=== PATIENT | male | born 1945 | race African-American/Black ===

== ENCOUNTER 2020-04-04 11:11 | Inpatient (IN) | payer MEDICARE, MEDICAID ==
[~2020-04-04] VITALS: Ht 175.3 cm; Wt 85.3 kg
[2020-04-04] MEDS ORDERED: BISACODYL5 MG ORAL (11:26)
[2020-04-04] MEDS ORDERED: FAMOTIDINE20 MG ORAL (11:26)
[2020-04-04] MEDS ORDERED: BUSPIRONE HCL15 MG ORAL (11:26)
[2020-04-04] MEDS ORDERED: ASPIR 8181 MG ORAL (11:26)
[2020-04-04] MEDS ORDERED: LISINOPRIL20 MG ORAL (11:26)
[2020-04-04] MEDS ORDERED: MULTIVITAMINS1 EAC8 ORAL (11:26)
[2020-04-04] MEDS ORDERED: GUAIFENESIN PO (11:26)
[2020-04-04] MEDS ORDERED: COREG3.125 MG ORAL (11:26)
[2020-04-04] MEDS ORDERED: DIGOXIN125 MCG ORAL (11:26)
[2020-04-04] MEDS ORDERED: REMERON15 MG ORAL (11:26)
[2020-04-04] MEDS ORDERED: GUAIFENESIN DM118 M1 ORAL (11:26)
[2020-04-04] MEDS ORDERED: SPIRONOLACTONE25 MG ORAL (11:26)
[2020-04-04 11:27] VITALS: BP 122/70
[2020-04-04] MEDS ORDERED: VITAMIN C500 M1 ORAL (11:27)
[2020-04-04] MEDS ORDERED: SENNA8.6 M2 PO (11:27)
[2020-04-04] MEDS ORDERED: ACETAMINOPHEN325 M1 ORAL (11:27)
[2020-04-04] MEDS ORDERED: FLOMAX0.4 MG ORAL (11:27)
[2020-04-04] MEDS ORDERED: ZINC SULFATE220 M1 ORAL (11:27)
--- NOTE | 2020-04-04 11:36 | NUR ---
ED Nurse Note: Patient arrived with [facility] unit [facility] due to increase in ALOC from snf. Per facility's staff patient confused and delusional. Patient presented AAO x4, VSS at this time, talking in full sentances, has even non-labored breathing. ER MD at bed side
--- NOTE | 2020-04-04 11:41 | Emergency Room Report ---
History of Present Illness General Chief Complaint: Altered Level of Consciousness Source: Patient Present Illness HPI Patient is a 75-year-old male brought in by EMS for altered mental status. Patient reportedly had been having increased delusional behavior. 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 States that he had previous AICD placement patient is a resident of [facility] patient had been more somnolent at his facility and had have been difficulty arousable. Patient had not been vomiting had prior history of disconjugate gaze and lazy eye. 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 COVID-19 Screening: Negative COVID-19 COVID-19 Testing Source: unk Patient History Past Medical History: see triage record Reviewed Nursing Documentation: PMH: Agreed; PSxH: Agreed Nursing Documentation-PMH Past Medical History: No History, Except For Hx COPD: Yes Review of Systems All Other Systems: negative except mentioned in HPI Physical Exam Vital Signs Date Time Temp Pulse Resp B/P (MAP) Pulse Ox O2 Delivery O2 Flow Rate FiO2 04/04/20 11:12 98.6 72 15 122/70 (87) 92 Room Air Sp02 EP Interpretation: reviewed, normal General Appearance: normal inspection, well appearing, no apparent distress, alert Head: atraumatic Eyes: bilateral eye other ENT: normal ENT inspection, hearing grossly normal, normal voice Neck: normal inspection, full range of motion, supple, no bony tend Respiratory: normal inspection, lungs clear, normal breath sounds, no respiratory distress, no retraction, no wheezing Cardiovascular #1: regular rate, rhythm, no edema Gastrointestinal: normal inspection, normal bowel sounds, non tender, soft, no guarding, no hernia Musculoskeletal: normal inspection, back normal, normal range of motion Neurologic: alert, motor weakness - Left-sided weakness, responsive, speech normal, normal inspection, other - Disconjugate gaze with rest Psychiatric: normal inspection, judgement/insight normal, mood/affect normal Medical Decision Making Diagnostic Impression: Primary Impression: Encephalopathy Additional Impression: CVA, old, hemiparesis ER Course Patient presented for altered level consciousness. Differential diagnosis include was not limited to pneumonia, bowel obstruction, urinary tract infection , electrolyte abnormality, CVA among others. Because of complexity of patient' s case laboratory tests and imaging studies were ordered. Laboratory testing showed no acute abnormalities. No evidence of urinary infection. CT of the head read by radiology showed large old CVA. See radiology report for full details. Patient was noted to have what appears to be adequate mental status. It is unclear as to what caused the patient's initial alteration in mental status at the facility. Patient be placed in observation. Dr. Sofie Garcia was contacted for inpatient management EKG Diagnostic Results Rate: normal Rhythm: NSR ST Segments: no acute changes Last Vital Signs Date Time Temp Pulse Resp B/P (MAP) Pulse Ox O2 Delivery O2 Flow Rate FiO2 04/04/20 11:12 98.6 72 15 122/70 (87) 92 Room Air Status: improved Disposition: PLACE IN OBSERVATION Condition: Stable Yohan Tiwari MD Apr 04, 2020 11:41
--- NOTE | 2020-04-04 11:50 | NUR ---
ED Nurse Note: IV established on right AC 20ga, blood collected sent down
--- NOTE | 2020-04-04 11:58 | NUR ---
ED Nurse Note: patient was taken to CT
--- NOTE | 2020-04-04 12:09 | NUR ---
ED Nurse Note: Pt returned from CT, not in any distress.
[2020-04-04 12:11] LABS: BASOPHILS % (AUTO) 0.6 % (0.0-2.0); EOSINOPHILS % (AUTO) 1.9 % (0.0-3.0); HEMATOCRIT 47.5 % (37.0-47.0); MEAN CORPUSCULAR VOLUME 93 FL (80-99); MONOCYTES % (AUTO) 7.7 % (1.0-10.0); NEUTROPHILS % (AUTO) 67.9 % (45.0-75.0); PLATELET COUNT 174 K/UL (150-450); RED BLOOD COUNT 5.13 M/UL (4.20-5.40); WHITE BLOOD COUNT 7.3 K/UL (4.8-10.8)
--- NOTE | 2020-04-04 12:16 | Diagnostic Imaging Report ---
. Indication: Reason For Exam: AMS Technique: Continuous helical CT scanning of the head was performed without intravenous contrast material. Axial and coronal 5 mm sections were generated. Dose: Total Dose Length Product - DLP [address] Dose Index - CTDIvol(s) 53.40 mGy. Automated exposure control was utilized for dose reduction. Comparison: None Findings: The ventricles are prominent with prominence of cortical sulci. There is a large area of encephalomalacia involving the right frontal and temporal lobe in the distribution of the right middle cerebral artery. Periventricular low-density is present. There is no shift of midline structures. No abnormal extra-axial fluid collections are noted. There is no evidence of intracerebral bleeding. No other abnormal high or low density areas are noted within the brain. Impression: Atrophy. Chronic small vessel white matter ischemic change. 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 No acute abnormality. The CT scanner at [facility] is accredited by the [employer] and the scans are performed using protocols designed to limit radiation exposure to as low as reasonably achievable to attain images of sufficient resolution adequate for diagnostic evaluation.
--- NOTE | 2020-04-04 12:23 | NUR ---
ED Nurse Note: Urine sent to lab.
[2020-04-04 12:28] LABS: ANION GAP 5 mmol/L (5-15); BLOOD UREA NITROGEN 11 mg/dL (7-18); CALCIUM 8.6 MG/DL (8.5-10.1); CARBON DIOXIDE 31 MMOL/L (21-32); CHLORIDE 108 MMOL/L (98-107); CREATININE 0.8 MG/DL (0.55-1.30); POTASSIUM 3.9 MMOL/L (3.5-5.1); SODIUM 144 MMOL/L (136-145)
[2020-04-04 12:40] LABS: ALANINE AMINOTRANSFERASE 24 U/L (12-78); ALBUMIN 3.2 G/DL (3.4-5.0); ALBUMIN/GLOBULIN RATIO 0.8 (1.0-2.7); ALKALINE PHOSPHATASE 72 U/L (46-116); ASPARTATE AMINO TRANSFERASE 14 U/L (15-37); BILIRUBIN,TOTAL 0.4 MG/DL (0.2-1.0)
[2020-04-04 13:16] LABS: APPEARANCE,URINE CLEAR; BILIRUBIN, URINE NEGATIVE (NEGATIVE); COLOR,URINE PALE YELLOW; GLUCOSE, URINE (UA) NEGATIVE (NEGATIVE); KETONES,URINE NEGATIVE (NEGATIVE); LEUKOCYTE ESTERASE ,URINE 1+ (NEGATIVE); NITRITE,URINE NEGATIVE (NEGATIVE); PH,URINE 6 (4.5-8.0); PROTEIN,URINE NEGATIVE (NEGATIVE); UROBILINOGEN,URINE NORMAL MG/DL (0.0-1.0)
--- NOTE | 2020-04-04 15:18 | NUR ---
NURSE NOTES:RECEIVED REPORT FR. MARKETING SUPPORT SPECIALIST.(MELODIE).PRIMARY RN.(ADAM) INFORMED.
--- NOTE | 2020-04-04 15:30 | NUR ---
ED Nurse Note: Patient was transfered to [facility] unit due to ALOC. Patient was transfered via gurney with all belongigngs. Patient AAO x4, VSS at this time, skin is warm to touch, intact.
--- NOTE | 2020-04-04 15:44 | NUR ---
NURSE NOTES: Patient arrived on unit. Stable. Breathing is even and unlabored. Patient is able to verbalize needs. Denies pain or SOB. Patient oriented to room, call light, and unit. Patient instructed to use call light for assistance, verbalized understanding. Patient is in bed in locked and lowest position with call light within reach, room close to nurses station. All safety measures provided. Will continue to monitor.
--- NOTE | 2020-04-04 15:50 | NUR ---
NURSE NOTES: Paged Dr. Walden regarding admission orders. Awaiting response.
[2020-04-04 16:00] VITALS: BP 150/75
[2020-04-04] MEDS ORDERED: guaiFENesin 100mg/5ml Liq ud ORAL PRN (16:45)
[2020-04-04] MEDS ORDERED: BusPIRone 5mg Tab ORAL SCH (18:00)
--- NOTE | 2020-04-04 19:11 | NUR ---
NURSE HAND-OFF: Important Events on Shift:[admission] Patient Status: stable Diet: BRANDO reg Pending Orders: [n/a] Pending Results/Labs:am labs Pending MD notification:none Latest Vital Signs: Temperature 98.1 , Pulse 64 , B/P 150 /75 , Respiratory Rate 20 , O2 SAT 96 , Room Air, O2 Flow Rate . Vital Sign Comment: n/a Latest Corrigan Fall Score: 35 Fall Risk: Medium Risk Safety Measures: Call light Within Reach, Bed Alarm Zone 1, Side Rails Side Rails x2, Bed position Low and Locked. Fall Precautions: Yellow Socks Yellow Gown Door Sign Patient Fall Education Addendum: 04/04/20 at 1938 by ADAM GARCIA RN report given to Eden POTTER.
--- NOTE | 2020-04-04 19:15 | NUR ---
NURSE NOTES: Patient in bed, awake, able to make needs known. On room air with no signs of distress or SOB. IV intact and patent. Condom cath on. Bed locked and in lowest position. Bed alarm on. Call light in reach. Will continue to monitor the patient.
[2020-04-04 20:00] VITALS: BP 117/80
[2020-04-04] MEDS: Tamsulosin 0.4mg cap ORAL SCH (20:29)
[2020-04-04] MEDS: Sennosides 8.6mg tab ORAL SCH (20:38)
[2020-04-04 23:52] VITALS: BP 132/66
--- NOTE | 2020-04-05 | Consultation ---
DATE OF CONSULTATION: 04/04/2020 CONSULTING PHYSICIAN: Shawn Blanco MD. HISTORY OF PRESENT ILLNESS: This is a 75-year-old male with a history of stroke, vascular dementia as well as depression, psychotic disorder who was admitted due to altered mental status. During the evaluation, patient is . He is probably confused; however, is able to answer the questions and is providing history. PAST PSYCHIATRIC HISTORY: Significant for depression, anxiety. PAST MEDICAL HISTORY: Significant for stroke, agitation, COPD. ALLERGIES: No known drug allergies. SUBSTANCE ABUSE HISTORY: No known history of illicit drug use or alcohol. MENTAL STATUS EXAMINATION: Patient is alert. Mood is anxious. Affect is flat. Thought process is concrete. Thought content, no suicidal or homicidal ideation. Cognition is impaired. Insight and judgment is impaired. ASSESSMENT: 1. Vascular dementia. 2. Major depressive disorder. 3. Anxiety disorder. PLAN: 1. We will discontinue the BuSpar. 2. Continue the Remeron. 3. Provide the patient with reality orientation and supportive therapy. Shawn Blanco M.D. DR: PIEDAD JOB#: [id number] CC:
[2020-04-05 04:00] VITALS: BP 133/78
[2020-04-05 06:13] LABS: BASOPHILS % (AUTO) 0.6 % (0.0-2.0); EOSINOPHILS % (AUTO) 2.4 % (0.0-3.0); HEMATOCRIT 47.3 % (42.0-52.0); HEMOGLOBIN 14.9 G/DL (14.2-18.0); MEAN CORPUSCULAR VOLUME 94 FL (80-99); MONOCYTES % (AUTO) 4.7 % (1.0-10.0); NEUTROPHILS % (AUTO) 64.3 % (45.0-75.0); PLATELET COUNT 157 K/UL (150-450); RED BLOOD COUNT 5.05 M/UL (4.70-6.10); RED CELL DISTRIBUTION WIDTH 13.6 % (11.6-14.8); WHITE BLOOD COUNT 7.3 K/UL (4.8-10.8)
--- NOTE | 2020-04-05 06:19 | NUR ---
NURSE HAND-OFF: Important Events on Shift: None Patient Status: stable Diet: BRANDO - reg Pending Orders: N/A Pending Results/Labs:Pending AM labs Pending MD notification:N/A Latest Vital Signs: Temperature 98.2 , Pulse 80 , B/P 133 /78 , Respiratory Rate 18 , O2 SAT 93 , Room Air, O2 Flow Rate . Vital Sign Comment: Latest Corrigan Fall Score: 35 Fall Risk: Medium Risk Safety Measures: Call light Within Reach, Bed Alarm Zone 1, Side Rails Side Rails x2, Bed position Low and Locked. Fall Precautions: Jose Luis Henderson Patient Fall Education Addendum: 04/05/20 at 0708 by JACOB YEE RN Handoff report given to ABBEY Lizama
[2020-04-05 06:42] LABS: ALANINE AMINOTRANSFERASE 24 U/L (12-78); ALBUMIN/GLOBULIN RATIO 0.8 (1.0-2.7); ALKALINE PHOSPHATASE 72 U/L (46-116); ANION GAP 4 mmol/L (5-15); ASPARTATE AMINO TRANSFERASE 14 U/L (15-37); BILIRUBIN,TOTAL 0.3 MG/DL (0.2-1.0); BLOOD UREA NITROGEN 15 mg/dL (7-18); CALCIUM 8.6 MG/DL (8.5-10.1); CARBON DIOXIDE 30 MMOL/L (21-32); CHLORIDE 106 MMOL/L (98-107); CREATININE 0.9 MG/DL (0.55-1.30); POTASSIUM 3.8 MMOL/L (3.5-5.1); SODIUM 140 MMOL/L (136-145)
--- NOTE | 2020-04-05 07:30 | NUR ---
NURSE NOTES: Patient is in bed asleep. Stable. Breathing is even and unlabored. No visible signs of distress noted at this time. Patient is in bed in locked and lowest position with call light within reach. All safety measures provided. Will continue to monitor.
[2020-04-05 08:00] VITALS: BP 140/77
[2020-04-05] MEDS: Aspirin EC 81mg tab ORAL SCH (08:54)
[2020-04-05] MEDS: Digoxin 0.125mg tab ORAL SCH (08:54)
[2020-04-05] MEDS: Ascorbic Acid 500mg tab ORAL SCH (08:54)
[2020-04-05] MEDS: Spironolactone 25mg tab ORAL SCH (08:54)
[2020-04-05] MEDS: Zinc Sulfate 220mg ORAL SCH (08:54)
[2020-04-05] MEDS: Multivitamin w/Minerals tab ORAL SCH (08:54)
[2020-04-05] MEDS: Lisinopril 20mg tab ORAL SCH (08:54)
[2020-04-05 12:00] VITALS: BP 155/73
[2020-04-05 16:00] VITALS: BP 152/92
--- NOTE | 2020-04-05 16:41 | NUR ---
CASE MANAGEMENT: INITIAL REVIEW 75YR OLD MALE BIBA FROM [facility] CC: ALTERED LEVEL OF CONSCIOUSNESS SI:AMS 98.6 72 15 122/70 92% ON RA BG 127 ALB 3.2 IS:BUSPAR PO BID FLOMAX PO QHS REMERON PO QHS COREG PO BID CT HEAD -Atrophy.Chronic small vessel white matter ischemic change.Old right middle cerebral artery infarct. No acute abnormality. \: 3E MED SURG UNIT DCP: [facility] WHEN STABLE PLAN: ADJUST MEDS IMAGING REVIEW CASE MANAGEMENT: REVIEW 04/05/20 SI:AMS 98.0 79 18 152/92 94% ON RA BG 118 IS:ALDACTONE PO QD LISINOPRIL PO QD ASPIRIN PO QD FLOMAX PO QHS REMERON PO QHS COREG PO BID \: [facility]E [facility] SURG [facility] DCP: [facility] WHEN STABLE PLAN: PSYCH CONSULT
--- NOTE | 2020-04-05 17:55 | NUR ---
NURSE HAND-OFF: Important Events on Shift:[n/a] Patient Status: stable Diet: BRANDO Pending Orders: n/a Pending Results/Labs:n/a Pending MD notification:n/a Latest Vital Signs: Temperature 98.0 , Pulse 79 , B/P 152 /92 , Respiratory Rate 18 , O2 SAT 94 , Room Air, O2 Flow Rate . Vital Sign Comment: n/a Latest Corrigan Fall Score: 35 Fall Risk: Medium Risk Safety Measures: Call light Within Reach, Bed Alarm Zone 1, Side Rails Side Rails x2, Bed position Low and Locked. Fall Precautions: Yellow Socks Patient Fall Education . Addendum: 04/05/20 at 1917 by ADAM GARCIA RN report given to Maxim POTTER.
--- NOTE | 2020-04-05 19:09 | NUR ---
NURSE NOTES: Pt. received from ABBEY Lizama. Pt. AAOx4, on room air, resting comfortably in bed, no respiratory distress and no complaints of pain at this time. IV noted right AC intact. Bed low and locked, side rails x2 up, bed alarm active, and call light in reach.
[2020-04-05 20:00] VITALS: BP 145/80
[2020-04-05] MEDS: Tamsulosin 0.4mg cap ORAL SCH (20:08)
[2020-04-05] MEDS: Sennosides 8.6mg tab ORAL SCH (20:09)
--- NOTE | 2020-04-05 22:30 | History and Physical Report ---
DATE OF ADMISSION: 04/04/2020 HISTORY OF PRESENT ILLNESS: The patient comes in because of delusional behavior and altered mental status. He has history of previous CVA with left-sided and weakness. The patient also has AICD in the past. The [facility] a [facility]. He was admitted for AMS workup/agitation and delusion. Denies nausea, vomiting, or diarrhea. Denies fever or chills. Denies any shortness of breath. Denies cough. Poor historian. PAST MEDICAL HISTORY: Psychosis, organic brain syndrome, history of COPD, GERD, arrhythmia, anxiety, constipation, BPH, hypertension. PAST SURGICAL HISTORY: Denies. ALLERGIES: No known allergies. MEDICATIONS: Vitamin C, bisacodyl, BuSpar, digoxin, Coreg, famotidine, lisinopril, mirtazapine, Senokot, spironolactone, Flomax. FAMILY HISTORY: Noncontributory. SOCIAL HISTORY: Denies of history of smoking. Denies history of alcohol or illicit drugs. Comes from a [facility]. REVIEW OF SYSTEMS: HEENT: Denies headaches. RESPIRATORY: Denies shortness of breath. Denies cough. CARDIOVASCULAR: Denies chest pain. GASTROINTESTINAL: Denies nausea, vomiting, diarrhea. EXTREMITIES: Denies pain; however, poor historian. PHYSICAL EXAMINATION: VITAL SIGNS: Temperature 98.2, pulse 80, blood pressure 155/70. HEENT: PERRLA. NECK: Supple. No lymphadenopathy. CHEST: Clear to auscultation. CARDIOVASCULAR: Regular rate and rhythm. No murmurs or extra sounds. GASTROINTESTINAL: Soft, nontender, nondistended. No organomegaly. EXTREMITIES: No edema. Moves all four extremities. NEUROLOGIC: Sensory intact to light touch. The patient is oriented to name, generalized weakness. Reflexes on both sides. LABORATORY AND DIAGNOSTIC DATA: WBC of 7.3, hemoglobin of 15, platelets of 174. Sodium 144, potassium of 3.9, BUN of 11, creatinine 0.8. ASSESSMENT AND PLAN: Altered mental status, agitation, delusional, as well as hypertension. I have consulted Dr. Blanco to help with the management of the above-mentioned abnormalities and symptoms. We will try to bring down the blood pressure. Sofie Walden M.D. DR: Haja JOB#: [id number] CC:
--- NOTE | 2020-04-05 23:42 | Psych Consult Progress Note ---
Psychiatry Progress Note Psychiatry Progress Note Subjective the pt is more lucid and doing well Medications Current Medications Medications (Trade) Dose Ordered Sig/Alo Route PRN Reason Start Time Stop Time Status Last Admin Dose Admin Acetaminophen (Tylenol) 650 mg Q4H PRN ORAL For Pain 04/04/20 16:45 05/04/20 16:44 Ascorbic Acid (Vitamin C) 500 mg DAILY ORAL 04/05/20 09:00 05/05/20 08:59 04/05/20 08:54 Aspirin (Ecotrin) 81 mg DAILY ORAL 04/05/20 09:00 05/20/20 08:59 04/05/20 08:54 Bisacodyl (Dulcolax) 10 mg DAILYPRN PRN RECTAL Constipation 04/04/20 16:45 07/03/20 16:44 Carvedilol (Coreg) 3.125 mg EVERY 12 HOURS ORAL 04/04/20 21:00 05/04/20 20:59 04/05/20 20:09 Digoxin (Lanoxin) 0.125 mg DAILY ORAL 04/05/20 09:00 07/04/20 08:59 04/05/20 08:54 Famotidine (Pepcid) 20 mg BID ORAL 04/04/20 18:00 07/03/20 17:59 04/05/20 17:22 Guaifenesin (Robitussin) 100 mg QIDPRN PRN ORAL For Cough 04/04/20 16:45 07/03/20 16:44 Lisinopril (PriniviL) 20 mg DAILY ORAL 04/05/20 09:00 05/05/20 08:59 04/05/20 08:54 Mirtazapine (Remeron) 15 mg BEDTIME ORAL 04/04/20 21:00 07/03/20 20:59 04/05/20 20:09 Multivitamins Therapeutic (Therapeutic Multivitamin) 1 ea DAILY ORAL 04/05/20 09:00 05/05/20 08:59 04/05/20 08:54 Sennosides (Senokot) 8.6 mg BEDTIME ORAL 04/04/20 21:00 05/04/20 20:59 Spironolactone (Aldactone) 25 mg DAILY ORAL 04/05/20 09:00 05/05/20 08:59 04/05/20 08:54 Tamsulosin HCl (Flomax) 0.4 mg BEDTIME ORAL 04/04/20 21:00 05/04/20 20:59 04/05/20 20:08 Zinc Sulfate (Zinc Sulfate) 220 mg DAILY ORAL 04/05/20 09:00 07/04/20 08:59 04/05/20 08:54 Neurological/Psychiatric: Reports: anxiety, depressed Allergies: Coded Allergies: No Known Allergies (Unverified , 04/04/20) Objective Data Height (Feet): 5 Height (Inches): 9.00 Weight (Pounds): 188 General Appearance: WD/WN, no apparent distress, alert, alert oriented x3 Additional Comments: alert. Mood is anxious. Affect is flat. Thought process is concrete. Thought content, no suicidal or homicidal ideation. Cognition is impaired. Insight and judgment is impaired. Assessment/Plan Assessment/Plan: 1. Vascular dementia. 2. Major depressive disorder. 3. Anxiety disorder. PLAN: 1. We will discontinue the BuSpar. 2. Continue the Remeron. 3. Provide the patient with reality orientation and supportive therapy. Shawn Blanco MD Apr 05, 2020 23:42
[2020-04-06] VITALS: BP 137/76
--- NOTE | 2020-04-06 03:39 | NUR ---
NURSE NOTES: Pt. with episodes of confusion throughout the night, rounded and reoriented frequently to location and purpose of hospitalization.
[2020-04-06 04:00] VITALS: BP 150/80
--- NOTE | 2020-04-06 07:30 | NUR ---
NURSE NOTES: RECEIVED REPORT FROM ABBEY OJEDA. PATIENT IS A/A/OX2, CONFUSED. APPEARED TO BE IMPULSIVED. PATIENT HAS A ARM SLING ON LEFT ARM. NO S/SX OF ACUTE CARDIO-RESP DISTRESS NOTED. PIV INTACT AND PATENT. KEPT BED IN LOWEST POSITION. ABLE TO FEED SELF INDEPENDENTLY. NO COMPLAINS OF PAIN/DISCOMFORT NOTED. SIDERAILS ARE UPX3. CALL LIGHT WITHIN EASY REACH. BRAKES AND LOCKED @ ALL TIMES. WILL CONT TO MONITOR.
--- NOTE | 2020-04-06 07:33 | NUR ---
NURSE HAND-OFF: Important Events on Shift:[pt. with periods of confusion] Patient Status: stable Diet: BRANDO Pending Orders: na Pending Results/Labs:na Pending MD notification:na Latest Vital Signs: Temperature 98.8 , Pulse 80 , B/P 150 /80 , Respiratory Rate 19 , O2 SAT 97 , Room Air, O2 Flow Rate . Vital Sign Comment: stable Latest Corrigan Fall Score: 35 Fall Risk: Medium Risk Safety Measures: Call light Within Reach, Bed Alarm Zone 1, Side Rails Side Rails x2, Bed position Low and Locked. Fall Precautions: Yellow Socks Patient Fall Education Report given to KALPESH Dior.
[2020-04-06 08:00] VITALS: BP 130/77
[2020-04-06] MEDS: Spironolactone 25mg tab ORAL SCH (08:07)
[2020-04-06] MEDS: Aspirin EC 81mg tab ORAL SCH (08:07)
[2020-04-06] MEDS: Ascorbic Acid 500mg tab ORAL SCH (08:08)
[2020-04-06] MEDS: Zinc Sulfate 220mg ORAL SCH (08:08)
[2020-04-06] MEDS: Multivitamin w/Minerals tab ORAL SCH (08:08)
[2020-04-06] MEDS: Lisinopril 20mg tab ORAL SCH (08:11)
[2020-04-06] MEDS: Digoxin 0.125mg tab ORAL SCH (08:11)
[2020-04-06 11:58] VITALS: BP 138/73
--- NOTE | 2020-04-06 16:02 | NUR ---
*-*DISCHARGE PLANNING*-* PATIENT HAS BEEN ACCEPTED BACK TO: [facility] P: [phone] ROOM# 137 SKILLED
[2020-04-06 16:06] VITALS: BP 122/72
--- NOTE | 2020-04-06 16:48 | NUR ---
NURSE NOTES: NOT READY FOR DISCHARGE PER DR BLEVINS. WILL CONT TO MONITOR.
--- NOTE | 2020-04-06 17:00 | NUR ---
HAND-OFF: Report given to TONYA.
--- NOTE | 2020-04-06 19:30 | NUR ---
HAND-OFF: Report given to Maida RN, pt stable
--- NOTE | 2020-04-06 19:45 | NUR ---
NURSE NOTES: Received report from ABBEY Saucedo. Pt a/a/ox3. Pt laying in bed. breathing regular and unlabored. No distress noted, Denies pain. Pt has arm sling on left arm. IV on Right AC is intact and patent. Call light within reach. bed is in low and locked position. Side rails up x3. Will continue to monitor.
[2020-04-06 20:00] VITALS: BP 123/66
[2020-04-06] MEDS: Sennosides 8.6mg tab ORAL SCH (21:00)
[2020-04-06] MEDS: Tamsulosin 0.4mg cap ORAL SCH (21:00)
--- NOTE | 2020-04-06 21:00 | NUR ---
NURSE NOTES: Pt refused all 2100 medications despite RN education on the benefits of the medications. Pt stating " I dont need anymore mediations". I tried to offer medication again at 2200 but still refused.
--- NOTE | 2020-04-06 21:13 | General Progress Note ---
Assessment/Plan Problem List: (1) Altered level of consciousness ICD Codes: R40.4 - Transient alteration of awareness SNOMED: 1650434 Status: progressing Assessment/Plan: ams agitation psych patient reviewed chart and labs dc planning Subjective ROS Limited/Unobtainable: Yes Allergies: Coded Allergies: No Known Allergies (Unverified , 04/04/20) Objective Last 24 Hour Vital Signs Date Time Temp Pulse Resp B/P (MAP) Pulse Ox O2 Delivery O2 Flow Rate FiO2 04/06/20 16:06 98.5 80 20 122/72 (89) 94 04/06/20 11:58 99.4 82 18 138/73 (94) 94 04/06/20 09:00 Room Air 04/06/20 08:15 92 130/77 04/06/20 08:11 130/77 04/06/20 08:11 92 04/06/20 08:00 97.4 92 19 130/77 (94) 96 04/06/20 04:00 98.8 80 19 150/80 (103) 97 04/06/20 00:00 97.8 83 19 137/76 (96) 99 Intake and Output 04/05/20 04/06/20 19:00 07:00 Intake Total 300 ml Output Total 900 ml Balance -600 ml Intake Oral 300 ml Output Urine Total 900 ml Height (Feet): 5 Height (Inches): 9.00 Weight (Pounds): 188 Sofie Walden MD Apr 06, 2020 21:13
[2020-04-07] VITALS: BP 145/76
[2020-04-07 04:00] VITALS: BP 120/61
--- NOTE | 2020-04-07 07:28 | NUR ---
Important Events on Shift: Refused all 2100 medications, despite Pt education on benefits. Pt had episodes of confusion Patient Status: Stable Diet: No added salt diet Pending Orders: Pending Results/Labs: Pending MD notification: Latest Vital Signs: Temperature 98.6 , Pulse 76 , B/P 120 /61 , Respiratory Rate 18 , O2 SAT 94 , Room Air, O2 Flow Rate . Vital Sign Comment: Latest Corrigan Fall Score: 35 Fall Risk: Medium Risk Safety Measures: Call light Within Reach, Bed Alarm Zone 2, Side Rails Side Rails x3, Bed position Low and Locked. Fall Precautions: Yellow Socks Patient Fall Education Report given to ABBEY Saucedo.
--- NOTE | 2020-04-07 07:56 | NUR ---
NURSE NOTES: Received report from Maida POTTER , rounds made , pt is awake having breakfast, a/ox3, breaths regular unlabored on RA no s/s of distress , pt has a sling on the L arm, pt has left sided weakness, pt has a RT AC 20G locked , bed in low locked position , with alarm, side rails upX2 call light with in reach will continue to Monitor
[2020-04-07 08:00] VITALS: BP 122/65
[2020-04-07] MEDS: Lisinopril 20mg tab ORAL SCH (08:27)
[2020-04-07] MEDS: Digoxin 0.125mg tab ORAL SCH (08:27)
[2020-04-07] MEDS: Ascorbic Acid 500mg tab ORAL SCH (08:27)
[2020-04-07] MEDS: Multivitamin w/Minerals tab ORAL SCH (08:27)
[2020-04-07] MEDS: Aspirin EC 81mg tab ORAL SCH (08:27)
[2020-04-07] MEDS: Zinc Sulfate 220mg ORAL SCH (08:28)
[2020-04-07] MEDS: Spironolactone 25mg tab ORAL SCH (08:28)
[2020-04-07 12:00] VITALS: BP 109/68
--- NOTE | 2020-04-07 12:55 | General Progress Note ---
Assessment/Plan Problem List: (1) Altered level of consciousness ICD Codes: R40.4 - Transient alteration of awareness SNOMED: [id number] Status: progressing Assessment/Plan: afebrile no acute change ams vitals stable reviewed chart and labs dc in am Subjective ROS Limited/Unobtainable: Yes Allergies: Coded Allergies: No Known Allergies (Unverified , 04/04/20) Objective Last 24 Hour Vital Signs Date Time Temp Pulse Resp B/P (MAP) Pulse Ox O2 Delivery O2 Flow Rate FiO2 04/07/20 12:00 98.3 82 21 109/68 (82) 96 04/07/20 09:00 Room Air 04/07/20 08:27 122/65 04/07/20 08:27 86 04/07/20 08:26 86 122/65 04/07/20 08:00 98.2 86 18 122/65 (84) 95 04/07/20 04:00 98.6 76 18 120/61 (80) 94 04/07/20 00:00 98.0 82 18 145/76 (99) 93 04/06/20 21:00 Room Air 04/06/20 20:00 98.5 76 18 123/66 (85) 97 04/06/20 16:06 98.5 80 20 122/72 (89) 94 Intake and Output 04/06/20 04/07/20 19:00 07:00 Intake Total 600 ml 150 ml Output Total 700 ml Balance 600 ml -550 ml Intake Oral 600 ml 150 ml Output Urine Total 700 ml Height (Feet): 5 Height (Inches): 9.00 Weight (Pounds): 188 Sofie Walden MD Apr 07, 2020 12:54
[2020-04-07 16:00] VITALS: BP 115/63
--- NOTE | 2020-04-07 17:53 | NUR ---
NURSE HAND-OFF: Important Events on Shift: Patient Status: Diet: Pending Orders: Pending Results/Labs: Pending MD notification: Latest Vital Signs: Temperature 98.4 , Pulse 79 , B/P 115 /63 , Respiratory Rate 19 , O2 SAT 94 , Room Air, O2 Flow Rate . Vital Sign Comment: Latest Corrigan Fall Score: 35 Fall Risk: Medium Risk Safety Measures: Call light Within Reach, Bed Alarm Zone 2, Side Rails Side Rails x3, Bed position Low and Locked. Fall Precautions: Yellow Socks Patient Fall Education Report given to .
--- NOTE | 2020-04-07 19:21 | NUR ---
HAND-OFF: Report given to Osmany POTTER
--- NOTE | 2020-04-07 19:22 | NUR ---
NURSE NOTES: Received report from ABBEY Saucedo. Rounding is done. Patient is a/ox3. Denied any pain at this time. No any distress at this time. Breathing is even and unlabored on RA. IV site is intact with S/L. Bed is on alarm, locked, and lowest position. Call light within reach. Will continue to monitor.
[2020-04-07 20:00] VITALS: BP 137/75
[2020-04-07] MEDS: Sennosides 8.6mg tab ORAL SCH (20:29)
[2020-04-07] MEDS: Tamsulosin 0.4mg cap ORAL SCH (20:29)
[2020-04-08] VITALS: BP 132/72
[2020-04-08 04:00] VITALS: BP 123/66
--- NOTE | 2020-04-08 07:30 | NUR ---
NURSE HAND-OFF: Important Events on Shift: Patient Status: Diet: Pending Orders: Pending Results/Labs: Pending MD notification: Latest Vital Signs: Temperature 97.8 , Pulse 78 , B/P 123 /66 , Respiratory Rate 18 , O2 SAT 93 , Room Air, O2 Flow Rate . Vital Sign Comment: Latest Corrigan Fall Score: 35 Fall Risk: Medium Risk Safety Measures: Call light Within Reach, Bed Alarm Zone 2, Side Rails Side Rails x3, Bed position Low and Locked. Fall Precautions: Yellow Socks Patient Fall Education Report given to .
--- NOTE | 2020-04-08 07:56 | NUR ---
NURSE NOTES: Received report from Scooby POTTER, pt is a/a/o laying in bed with no signs of distress or other issues at this time. condom cath in place. IV on the right AC gauge #20 heplock. pt is tolerating diet with no s/s n/v. call light within reach. bed in lowest position. side rales up x2. I will f/u as needed.
[2020-04-08 08:00] VITALS: BP 121/59
[2020-04-08 09:17] VITALS: BP 121/59
[2020-04-08] MEDS: Lisinopril 20mg tab ORAL SCH (09:17)
[2020-04-08] MEDS: Multivitamin w/Minerals tab ORAL SCH (09:18)
[2020-04-08] MEDS: Digoxin 0.125mg tab ORAL SCH (09:18)
[2020-04-08] MEDS: Zinc Sulfate 220mg ORAL SCH (09:18)
[2020-04-08] MEDS: Aspirin EC 81mg tab ORAL SCH (09:18)
[2020-04-08] MEDS: Ascorbic Acid 500mg tab ORAL SCH (09:18)
[2020-04-08] MEDS: Spironolactone 25mg tab ORAL SCH (09:19)
--- NOTE | 2020-04-08 10:15 | NUR ---
*-*DISCHARGE PLANNED*-* PATIENT HAS BEEN ACCEPTED AND WILL BE DISCHARGED BACK TO: [facility] P: [phone] FOR NURSE TO NURSE REPORT ROOM# 109.C SKILLED [facility] TRANSPORTATION SET FOR 12:15PM S/W JESSICA [id number] PLACED A CALL TO PATIENTS SISTER, KEVIN DONALD, NO ANSWER, LEFT A VOICE MESSAGE IN REGARDS TO DISCHARGE PLAN.
--- NOTE | 2020-04-08 11:30 | NUR ---
NURSE NOTES: Called [facility] and given report Arabella POTTER. I will f/u needed.
--- NOTE | 2020-04-08 13:30 | NUR ---
NURSE NOTES: Report given to Ambulance crew. pt left the floor with no signs of distress or other issues at this time. IV removed prior to d/c as well as his condom cath.
--- NOTE | 2020-04-09 00:07 | Psych Consult Progress Note ---
Psychiatry Progress Note Psychiatry Progress Note Subjective the pt is more lucid and doing well Neurological/Psychiatric: Reports: anxiety, depressed, emotional problems, headache Allergies: Coded Allergies: No Known Allergies (Unverified , 04/04/20) Objective Data Height (Feet): 5 Height (Inches): 9.00 Weight (Pounds): 188 General Appearance: WD/WN, no apparent distress, alert, alert oriented x3 Additional Comments: alert. Mood is anxious. Affect is flat. Thought process is concrete. Thought content, no suicidal or homicidal ideation. Cognition is impaired. Insight and judgment is impaired. Assessment/Plan [place] [facility]: 1. Vascular dementia. 2. Major depressive disorder. 3. Anxiety disorder. PLAN: 1. We will discontinue the BuSpar. 2. Continue the Remeron. 3. Provide the patient with reality orientation and supportive therapy. Status: progressing Status Narrative 1. Vascular dementia. 2. Major depressive disorder. 3. Anxiety disorder. PLAN: 1. We will discontinue the BuSpar. 2. Continue the Remeron. 3. Provide the patient with reality orientation and supportive therapy. Assessment/Plan: 1. Vascular dementia. 2. Major depressive disorder. 3. Anxiety disorder. PLAN: 1. We will discontinue the BuSpar. 2. Continue the Remeron. 3. Provide the patient with reality orientation and supportive therapy. Shawn Blanco MD Apr 09, 2020 00:07
--- NOTE | 2020-04-09 00:08 | Psych Consult Progress Note ---
Psychiatry Progress Note Psychiatry Progress Note Subjective 04/07 the pt is doing well Neurological/Psychiatric: Reports: anxiety, depressed, emotional problems, headache Allergies: Coded Allergies: No Known Allergies (Unverified , 04/04/20) Objective Data Height (Feet): 5 Height (Inches): 9.00 Weight (Pounds): 188 Additional Comments: alert. Mood is anxious. Affect is flat. Thought process is concrete. Thought content, no suicidal or homicidal ideation. Cognition is impaired. Insight and judgment is impaired. Assessment/Plan [place] [facility]: 1. Vascular dementia. 2. Major depressive disorder. 3. Anxiety disorder. PLAN: 1. We will discontinue the BuSpar. 2. Continue the Remeron. 3. Provide the patient with reality orientation and supportive therapy. Status: progressing Status Narrative 1. Vascular dementia. 2. Major depressive disorder. 3. Anxiety disorder. PLAN: 1. We will discontinue the BuSpar. 2. Continue the Remeron. 3. Provide the patient with reality orientation and supportive therapy. Assessment/Plan: 1. Vascular dementia. 2. Major depressive disorder. 3. Anxiety disorder. PLAN: 1. We will discontinue the BuSpar. 2. Continue the Remeron. 3. Provide the patient with reality orientation and supportive therapy. Shawn Blanco MD Apr 09, 2020 00:08
--- NOTE | 2020-04-09 12:32 | Discharge Summary ---
Discharge Summary Discharge Summary _ DATE OF ADMISSION: 04/04/2020 DATE OF DISCHARGE: 04/08/2020 DISCHARGED BY: Dr. Walden REASON FOR ADMISSION: 75 years old male with past medical history of COPD, hypertension, depression, history of CVA with left-sided weakness, cardiomyopathy, status post AICD, resident of longterm facility, was brought for evaluation due to altered mental status. Patient apparently was more somnolent at the facility , and nursing staff had difficulty to wake him up. Upon evaluation vital signs were stable. Laboratory work-up revealed no acute abnormalities. No evidence of urinary tract infection. EKG revealed sinus rhythm , no acute ischemic changes. Troponin was negative. CT of the head revealed evidence of old right middle cerebral artery infarct. No acute intracranial abnormality. Chronic small vessel white matter ischemic changes. Patient subsequently admitted to medical surgical floor for further management. CONSULTANTS: Psychiatry [facility] COURSE: Patient admitted to medical surgical floor. Psychiatrist followed. Psychiatric medication regimen was optimized. Reality orientation and supportive therapy provided. SNF medication resumed. Antiplatelet therapy with aspirin continued. Blood pressure was managed with beta-emilia and MARYCRUZ inhibitor. Guideline directed medical therapy for congestive heart failure continued with close monitoring of volumes. GI prophylaxis provided. Flomax continued. Supportive care provided. Bowel regimen instituted. Patient clinically stabilized and was ready for transfer back to longterm facility for continuation of care. 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 DISCHARGE INSTRUCTIONS: Patient was discharged to the longterm facility. Follow up with medical doctor at the facility. I have been assigned to dictate discharge summary for this account. I was not involved in the patient's management. Xiomara Cazares NP Apr 09, 2020 12:31
== END 2020-04-08 13:27 | disposition short-term general hospital (02) | DRG 884 ==
LOC: EDSEX 11:11 → EDBD 11:11 → EMR 11:40 → EDBEDREQ 13:58 → 3E 14:09 → EDBEDREQ 14:19
DX: F01.50 Vascular dementia, unspecified severity, without behavioral disturbance, psychotic disturbance, mood disturbance, and anxiety (principal); I69.354 Hemiplegia and hemiparesis following cerebral infarction affecting left non-dominant side; G93.40 Encephalopathy, unspecified; F32.9 Major depressive disorder, single episode, unspecified; F41.9 Anxiety disorder, unspecified; I10 Essential (primary) hypertension; Z95.810 Presence of automatic (implantable) cardiac defibrillator; F09 Unspecified mental disorder due to known physiological condition; J44.9 Chronic obstructive pulmonary disease, unspecified
CPT/HCPCS: 36415; 70450; 80053; 81001; 83690; 84443; 84484; 85025; 86140; 87081; 93005; 99285